=== PATIENT | male | born 1985 | race Caucasian/White ===

== ENCOUNTER 2017-09-02 12:55 | Inpatient (IN) | payer MEDICAID ==
[~2017-09-02] VITALS: Ht 198.1 cm; Wt 138.1 kg
[2017-09-02 13:10] VITALS: BP 175/101
[2017-09-02] MEDS ORDERED: CHANTIX1 EACH PO (13:16)
[2017-09-02] MEDS ORDERED: LISINOPRIL10 MG PO (13:16)
[2017-09-02] MEDS ORDERED: CLEOCIN HCL150 MG PO (13:17)
[2017-09-02] MEDS ORDERED: XANAX 0.5 MG0.5 MG PO (13:17)
[2017-09-02] MEDS ORDERED: NEURONTIN 300300 M1 PO (13:17)
[2017-09-02] MEDS ORDERED: CYMBALTA20 MG PO (13:17)
[2017-09-02] MEDS ORDERED: HUMALOG100 UNIT/2 SQ (13:18)
[2017-09-02] MEDS ORDERED: TYLENOL EXTRA500 MG PO (13:18)
[2017-09-02] MEDS ORDERED: IBUPROFEN 800800 M1 PO (13:18)
[2017-09-02 13:56] LABS: ABSOLUTE EOSINOPHILS 0.1 thou/uL (0.0-0.7); ABSOLUTE LYMPHOCYTES 1.2 thou/uL (0.8-5.3); ABSOLUTE MONOCYTES 0.4 thou/uL (0.0-1.2); ABSOLUTE NEUTROPHILS 4.8 thou/uL (1.6-8.1); BASOPHILS 0.4 %; EOSINOPHILS 2.2 %; HEMATOCRIT 35.1 % (42.0-52.0); HEMOGLOBIN 11.9 gm/dL (14.0-18.0); LYMPHOCYTES 18.3 %; MCH 30.8 pg (26.0-34.0); MCHC 33.9 g/dL (28.0-37.0); MCV 90.9 fL (80.0-100.0); MONOCYTES 6.7 %; NUCLEATED RBCS 0 /100WBC; PLATELET COUNT* 401 thou/uL (150-400); POLYS 72.4 %; RBC 3.86 mil/uL (4.50-6.00); RDW-CV 12.5 % (10.5-14.5); WBC 6.7 thou/uL (4.0-11.0)
[2017-09-02 14:05] LABS: CALCIUM 8.5 mg/dL (8.5-10.1); CREATININE 1.6 mg/dL (0.6-1.3); POTASSIUM 5.9 mmol/L (3.5-5.1)
[2017-09-02 14:09] LABS: ALBUMIN 2.8 g/dL (3.4-5.0); TOTAL BILIRUBIN 0.4 mg/dL (<0.1-1.0); TOTAL PROTEIN 6.7 g/dL (6.4-8.2)
[2017-09-02] MEDS ORDERED: NORCO 5-325 TA1 EACH PO (14:11)
[2017-09-02 15:43] VITALS: BP 148/68
[2017-09-02 15:47] VITALS: BP 176/104
[2017-09-02 20:00] VITALS: BP 150/90
[2017-09-03] VITALS: BP 134/69
[2017-09-03 04:00] VITALS: BP 173/98
[2017-09-03 08:00] VITALS: BP 161/99
--- NOTE | 2017-09-03 10:12 | EKG ---
[place] [address] ELECTROCARDIOGRAM REPORT Name: DEYA MIRELES Room: [address] ADM IN .R.#: [id number] Admission: 09/02/17 Attend Phys: Shan Murphy Discharge: Date of : 89 Report #: [id number] THIS REPORT FOR: //name// [facility] ED Test Date: 2017-09-02 Test Time: 15:37:49 Pat Name: DEYA MIRELES Department: Room: [place] [address] Gender: M Fiberglass Technician: : 1985 Requested By: Sue Matthews Order Number: [id number] MD: Klever Yan Measurements Intervals Gladys Rate: 84 P: 54 GA: 136 QRS: 17 QRSD: 80 T: 60 QT: 324 QTc: 383 Interpretive Statements Sinus rhythm No previous ECG available for comparison Electronically Signed On 09-03-2017 10:12:32 CDT by Klever Yan [email or web address] <ELECTRONICALLY SIGNED> By: Klever Yan MD, [facility] 09/03/17 1012 D: [id number] Klever Yan MD, FACC /EPI
[2017-09-03 12:00] VITALS: BP 172/103
[2017-09-03 16:00] VITALS: BP 173/110
[2017-09-03 20:00] VITALS: BP 169/91
[2017-09-04] VITALS (7 sets, daily range): BP systolic 125–188; BP diastolic 63–132
--- NOTE | 2017-09-04 08:08 | CON ---
[address] [address] CONSULTATION Name: DEYA MIRELES Room: [address] IN M.R.#: [id number] Admission: 09/02/17 Attend Phys: Shan Murphy Discharge: Date of : [birth year] Report #: [id number] THIS REPORT FOR: //name// CC: Adi Vargas DATE OF SERVICE: 09/03/2017 INFECTIOUS DISEASE CONSULTATION ATTENDING PHYSICIAN: Indy Vargas MD REASON FOR EVALUATION: Right foot chronic plantar ulcer in the setting of type 1 diabetes mellitus, now with increasing pain associated with the medial aspect involving the dorsal and chills. HISTORY OF PRESENT ILLNESS: Chart reviewed, the patient examined. This is a 32-year-old gentleman with type 1 diabetes mellitus diagnosed at age 17. He is on an insulin pump. Blood sugars have been fairly well controlled. He has a chronic plantar ulcer involving his right foot. 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 He noted increasing pain and discomfort. He was evaluated including MRI about 4 weeks ago, apparently was unremarkable. In fact he has had multiple surgeries. He has got hardware involved. He was treated with 10 days of clindamycin, seemed to improve after that; however, had more or less a relapse. He denies significant pulmonary or gastrointestinal related complaints. Plain film showed no osseous abnormality here. Lactic acid of 1.0. Blood cultures are sterile thus far, was empirically placed on antibiotics with cefepime and vancomycin. ALLERGIES: PENICILLIN WHICH CAUSES ANAPHYLAXIS. CURRENT MEDICINES: Include vancomycin, gabapentin, insulin lispro, duloxetine, cefepime, p.r.n. analgesics, antiemetics. PAST MEDICAL HISTORY: Diabetes mellitus type 1, previous toe amputations, hypertension. SOCIAL HISTORY: Disabled, chews tobacco, occasional ethanol. FAMILY HISTORY: Noncontributory. REVIEW OF SYSTEMS: As above. PHYSICAL EXAMINATION: GENERAL: He is pleasant, alert, cooperative, appears mildly chronically ill. He appears to be generally [place] [address] CONSULTATION Name: DEYA MIRELES Room: [address]#: [id number] Admission: 09/02/17 Attend Phys: Shan Murphy Discharge: Date of : 89 Report #: [id number] VITAL SIGNS: Temperature 98.2, pulse 87, respirations 16, blood pressure 161/99. SKIN: Warm, dry, no rashes. HEENT: Unremarkable. NECK: Supple. LUNGS: Clear to auscultation. HEART: Regular. ABDOMEN: Soft, obese, nontender, mildly distended. EXTREMITIES: In the right lower extremity plantar aspect, there is a fissure type lesion in the setting of a callus, is not a significant amount of surface inflammation. He does have some tenderness dorsally. GENITOURINARY: Deferred. RECTAL: Deferred. LABORATORY DATA: Blood cultures described above. Electrolytes: Sodium 138, potassium 5.9, chloride 108, bicarbonate 27, BUN and creatinine 20 and 1.6, glucose of 101. Albumin of 2.8. Total protein of 6.7. CBC: White count of 6.7, H and H 11.9 and 35.1, platelets of 401. ASSESSMENT AND PLAN: Suspected deep infection involving the right foot in the setting of diabetes mellitus type 1. There is associated fixation of hardware with plates, screws involving the 1st, 2nd and 3rd tarsometatarsal joints. We will continue empiric antimicrobial therapy. Await Podiatry evaluation, Dr. Lu. He apparently had been following this. Also, he had MRI over at [facility] roughly a month ago. We will try to obtain those records. We will monitor expectantly. <ELECTRONICALLY SIGNED> By: Sony Khoury MD 09/04/17 0808 1205 [id number] Khoury MD /nt
[2017-09-04 11:17] LABS: ABSOLUTE EOSINOPHILS 0.2 thou/uL (0.0-0.7); ABSOLUTE LYMPHOCYTES 1.2 thou/uL (0.8-5.3); ABSOLUTE MONOCYTES 0.5 thou/uL (0.0-1.2); ABSOLUTE NEUTROPHILS 4.2 thou/uL (1.6-8.1); BASOPHILS 0.8 %; EOSINOPHILS 3.7 %; HEMATOCRIT 31.5 % (42.0-52.0); HEMOGLOBIN 10.9 gm/dL (14.0-18.0); LYMPHOCYTES 19.2 %; MCH 31.3 pg (26.0-34.0); MCHC 34.5 g/dL (28.0-37.0); MCV 90.7 fL (80.0-100.0); MONOCYTES 8.8 %; MPV 7.6 fl. (7.2-11.1); NUCLEATED RBCS 0 /100WBC; PLATELET COUNT* 310 thou/uL (150-400); POLYS 67.5 %; RBC 3.48 mil/uL (4.50-6.00); RDW-CV 12.5 % (10.5-14.5); WBC 6.2 thou/uL (4.0-11.0)
[2017-09-04 11:29] LABS: ALBUMIN 2.5 g/dL (3.4-5.0); CALCIUM 8.3 mg/dL (8.5-10.1); CREATININE 1.3 mg/dL (0.6-1.3); POTASSIUM 5.1 mmol/L (3.5-5.1); TOTAL BILIRUBIN 0.4 mg/dL (<0.1-1.0)
--- NOTE | 2017-09-04 17:24 | CON ---
[address] [address] CONSULTATION Name: DEYA MIRELES Room: [address] IN M.R.#: [id number] Admission: 09/02/17 Attend Phys: Shan Murphy Discharge: Date of : 89 Report #: [id number] THIS REPORT FOR: //name// CC: Adi Vargas DATE OF SERVICE: 09/03/2017 HISTORY OF PRESENT ILLNESS: This is a 32-year-old male who is well known to me. The patient presented to the ED on 09/02/2017, concerned about increased pain, swelling and redness in his right foot. He indicates it has been getting worse over the past several days. The patient has had problems with an ulceration on the plantar aspect of the right foot for the last several weeks. About 2 months ago, he presented to [facility] ED with similar complaints. At that time, an MRI was negative for osteomyelitis or any abscess. He was treated outpatient. As indicated, his pain increased over the past couple of days. PAST MEDICAL HISTORY: Significant for diabetes mellitus, which has not been under good control. The patient has previously had the first and second toe on the left foot amputated about 1 year ago. No problems healing from this. The patient had a right foot reconstruction at several years ago. There is hardware in his right foot. ALLERGIES: THE PATIENT HAS AN ALLERGY TO PENICILLIN. CURRENT MEDICATIONS: Include hydralazine, vancomycin, gabapentin, insulin, Cymbalta, Percocet. Examination of the plantar aspect of the patient's right foot shows a full thickness ulceration beneath the first metatarsal head on the right foot. The ulceration is approximately 1.0 x 0.5 cm. There is hyperkeratotic tissue surrounding the ulceration. There is a moderate amount of drainage present. The ulceration does not probe deep. No exposed tendon or bone. No cellulitis associated with the ulceration. The patient does have an area of cellulitis along the medial aspect of the first metatarsal head, more proximal than the ulceration. This area is painful to the patient upon compression. No abscesses are noted. The patient has well-healed surgical scars on the right foot from the [place] [address] CONSULTATION Name: DEYA MIRELES Room: [address] IN ..#: [id number] Admission: 09/02/17 Attend Phys: Shan Murphy Discharge: Date of : 89 Report #: [id number] The DP and PT pulses are palpable on the right foot. The patient is unable to feel a 10 gram monofilament consistent with peripheral neuropathy. The patient's x-rays were reviewed. These do not show any obvious destruction consistent with osteomyelitis. There is hardware in the mid foot and rearfoot from the previous reconstruction. ASSESSMENT: 1. Cellulitis, right foot. 2. Diabetic ulceration, right forefoot with fat layer exposure. PLAN: The patient's symptoms do not appear to be associated with the ulceration. We will see about getting an MRI on the right foot. This may show a significant amount of artifact due to the hardware that is present. On this visit, the ulceration was debrided at the bedside. Continued local wound care with Aquacel Ag and foam pad. The importance of offloading was discussed. Also of note is the patient's BUN and creatinine are slightly increased. Therefore, it will be difficult to utilize contrast for the MRI. Thank you for asking me to participate in the care of this patient. <ELECTRONICALLY SIGNED> By: Gaudencio Lu DPM 09/04/17 1724 1735 1800Gaudencio Lu DPM /nt
[2017-09-05 03:38] VITALS: BP 133/79
[2017-09-05 07:49] VITALS: BP 145/100
[2017-09-05 12:00] VITALS: BP 146/87
[2017-09-05 12:59] VITALS: BP 146/87
[2017-09-05] MEDS ORDERED: MINOCIN100 MG PO (14:01)
[2017-09-05] MEDS ORDERED: PERCOCET PO (14:15)
--- NOTE | 2017-11-01 11:54 | CON ---
[address] [address] CONSULTATION Name: DEYA MIRELES Room: [address] IN M.R.#: [id number] Admission: 09/02/17 Attend Phys: Shan Murphy Discharge: 09/05/17 Date of : 89 Report #: [id number] THIS REPORT FOR: //name// CC: Adi Vargas DICTATED BY: Jose Manriquez DO DATE OF SERVICE: 09/04/2017 HISTORY OF PRESENT ILLNESS: The patient is a 32-year-old male with history of uncontrolled type 1 diabetes. He had a Lisfranc injury in the past that was left untreated for several years. He ultimately had this addressed at with Dr. Singh. He has since over the last 6 weeks developed IPK over his first metatarsal head. It is only through the superficial skin. There is still subcutaneous tissue overlying the metatarsal head. There is no area where it tracks the bone. There is no drainage. He has been wearing appropriate shoe inserts, however, is not overly compliant with wearing them. He has not been back to see Dr. Singh recently. No other acute complaints. PAST MEDICAL HISTORY: Type 1 diabetes mellitus, history of renal failure, symptomatic hardware, right foot. MEDICATIONS: See JUN. ALLERGIES: PENICILLIN. PAST SURGICAL HISTORY: Reconstruction of right foot with pins and screws. Lens replacement, right eye. Unspecified left shoulder surgery. Great and second toe, left foot amputated. REVIEW OF SYSTEMS: A 12-point review of systems otherwise negative except for the above-mentioned in HPI PHYSICAL EXAMINATION: GENERAL: Alert and oriented, no acute distress. HEENT: Head normocephalic, atraumatic. Eyes: Extraocular motion intact. Ears are grossly normal. Mouth mucosa moist. NECK: Supple. CARDIOVASCULAR: Cap refill brisk. ABDOMEN: Soft. MUSCULOSKELETAL: Examination of the right foot demonstrates multiple scars from previous fusion across the Lisfranc joint as well as calcaneal osteotomy and Achilles tendon lengthening. He has a 1 cm ulcer over his first metatarsal head on the plantar aspect of his foot with a beefy red base. There is no exposed bone or drainage. Sensation is decreased [place] [address] CONSULTATION Name: DEYA MIRELES Room: [address] IN [facility].#: [id number] Admission: 09/02/17 Attend Phys: Shan Murphy Discharge: 09/05/17 Date of : 89 Report #: [id number] IMAGING: X-rays and MRI reviewed, demonstrate previous hardware with some superficial subcutaneous edema. There is no focal abscess or concern for osteomyelitis. IMPRESSION: 1. Right foot pain. 2. History of a Lisfranc joint fusion. 3. Uncontrolled diabetes. 4. Plantar foot ulcer. PLAN: At this time, we recommend continued medical management with optimization of his blood glucose levels. In regards to the ulcer, it appears sterile. There is no purulent drainage or signs of active infection. MRI is reassuring that there is no infectious process going on in the bone. I discussed with the patient that the hardware may very well be a source of his pain and may also be contributing to some overall malalignment of the first metatarsal which is causing him to develop this ulcer; however, he needs to follow up with Dr. Singh at who can make further recommendations and recommend any continued conservative or surgical options. There is no acute orthopedic intervention required at this time. <ELECTRONICALLY SIGNED> By: Stiven Bailon DO 11/01/17 1154 1634 [id number] Bailon DO /nt
== END 2017-09-05 14:35 | disposition home or self-care (01) | DRG 603 ==
LOC: M.ERS 12:55 → M.TBA-ER 15:05 → M.2W 15:05
PROVIDERS: Physician Assistant; ADMIT Internal Medicine
DX: L03.115 Cellulitis of right lower limb (principal); N17.9 Acute kidney failure, unspecified; E10.621 Type 1 diabetes mellitus with foot ulcer; E87.5 Hyperkalemia; F32.9 Major depressive disorder, single episode, unspecified; I10 Essential (primary) hypertension; Z89.412 Acquired absence of left great toe; Z79.4 Long term (current) use of insulin; Z79.899 Other long term (current) drug therapy; Z88.0 Allergy status to penicillin

== ENCOUNTER → 2018-12-18 | Outpatient (CLI) | payer MEDICAID ==
[~2018-12-18] MED LIST: CHANTIX1 EACH PO; CLEOCIN HCL150 MG PO; CYMBALTA20 MG PO; HUMALOG100 UNIT/2 SQ; IBUPROFEN 800800 M1 PO; LISINOPRIL10 MG PO; MINOCIN100 MG PO; NEURONTIN 300300 M1 PO; NORCO 5-325 TA1 EACH PO; PERCOCET PO; TYLENOL EXTRA500 MG PO; XANAX 0.5 MG0.5 MG PO
== END ==
LOC: M.ULTRA 14:37
DX: N43.3 Hydrocele, unspecified (principal); N17.9 Acute kidney failure, unspecified

== ENCOUNTER 2019-10-06 20:20 | Emergency (ER) | payer MEDICAID ==
[~2019-10-06] VITALS: Ht 198.1 cm; Wt 117.9 kg
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
[2019-10-06] MEDS ORDERED: PROZAC10 M1 PO (20:34)
[2019-10-06 22:33] VITALS: BP 165/93
== END 2019-10-06 22:34 | disposition home or self-care (01) ==
LOC: M.ERS 20:20
DX: H92.01 Otalgia, right ear (principal); I10 Essential (primary) hypertension; E11.9 Type 2 diabetes mellitus without complications; Z79.4 Long term (current) use of insulin; Z88.0 Allergy status to penicillin

== ENCOUNTER 2019-12-03 07:58 | Inpatient (IN) | payer MEDICAID ==
[2019-12-03] VITALS (12 sets, daily range): BP systolic 112–169; BP diastolic 46–96
[~2019-12-03] VITALS: Ht 198.1 cm; Wt 110.8 kg
--- NOTE | ~2019-12-03 | EMS ---
[address] [place] [address] EMS Patient Care Report Name: DEYA MIRELES Room: [address] ADM IN .R.#: [id number] Admission: 12/03/19 Attend Phys: Alex Gibson MD Discharge: Date of : 89 Report #: [id number] THIS REPORT FOR: //name// Report Transmitted: 12/05/2019 12:33 EMS Care Summary [facility] Incident [id number] @ 12/03/2019 07:19 Incident Location [address] [place] [address] Patient DEYA MIRELES Male, 34 Years 1985 Patient Address [address] [place] [address] Patient History Diabetes,Hypertension (HTN),Depression, Patient Allergies Penicillin allergy, Patient Medications Carvedilol, Lisinopril, Humalog, Amlodipine, Chief Complaint Hypoglycemia Disposition Transported Lights/[place] Dispatch Reason Diabetic Problem Transported To [facility] Narrative Med 1 and Engine 2 were dispatched for a [age] year-old male c/o low blood sugar/seizures. Med 1 and Engine 2 arrived on scene and [place] [employer] was on scene also. Patient was lying in a recliner in the living room, seizing in a decorticate position. Patient's had given the patient 2 mg of Glucagon [address] [place] [address] EMS Patient Care Report Name: DEYA MIRELES Room: [address] IN ..#: [id number] Admission: 12/03/19 Attend Phys: Alex Gibson MD Discharge: Date of : [birth year] Report #: [id number] prior to EMS arrival. Patient's glucose was obtained with a result of 81 mg/dL. Patient's oxygen saturation on room air was 81%, patient was placed on NRB at 15 lpm of Oxygen. Patient's seizure ended but patient was still being uncontrollable. Patient was given 1 mg of Midazolam IM. Patient was carried and placed on the stretcher and secured via seat-belts. Patient was moved to the ambulance without incident. Med 1 went en route to [facility]. In the ambulance, patient was still kicking and swinging his arms. FF/Environmental Sustainability Manager [place] was able to obtain IV access in the patient's right forearm with a 20 GA IV and saline lock as Chief Shook held the patient's arms so IV access could be made. Patient was given the other 1 mg of Midazolam with no effect. Patient was given another 2 mg of Midazolam he calmed down for a few short minutes. Then patient attempted getting out of the stretcher seat-belts and swinging and EMS crew. Patient's hands were secured to the stretcher with kerlix. Hospital report was given via radio with no questions or orders received or requested. Med 1 arrived at the hospital. Patient was moved into the ER room 2 still kicking. Two security guards and 3 nurses, EMS crew assisted moving the patient to the ER bed. The ER physician ordered Ativan it had no effect on the patient. Patient was given Haldol in the ER, it helped briefly. Patient care was transferred to ER staff and Med 1 crew returned back into service. [id number] KShook Initial Vitals @08:09P: 108,R: 22,BP: 112/46,GCS: 7,Glucose: -2,SpO2: 98,Revised Trauma: 10, @07:25R: 24,BP: 102/80,GCS: 7,Glucose: 81,SpO2: 81,Revised Trauma: 10, Assessments @07:22MENTAL:Combative,Confused,Other,SKIN:Pale,Diaphoresis,Cold,HEENT:LUNG SOUNDS:ABDOMEN:PELVIS//GI:EXTREMITIES:PULSE:NEURO: Impression Diabetic Hypoglycemia Procedures @07:24Oxygen FlowRate: 15 Device: Non Re-breather Mask (NRB) Response: UnchangedSucceeded@07:45Midazolam - 2 Milligrams (mg) - Intravenous (IV)Response: Unchanged@07:34Midazolam - 1 Milligrams (mg) - Intramuscular (IM)Response: Unchanged@07:38Midazolam - 1 Milligrams (mg) - Intravenous (IV)Response: Unchanged@07:38Saline Lock 10cc (20 ga) Site: Forearm-RightResponse: [place] [address] EMS Patient Care Report Name: DEYA MIRELES Room: [address] IN .#: [id number] Admission: 12/03/19 Attend Phys: Alex Gibson MD Discharge: Date of : [birth year] Report #: [id number] 07:19,Call Received 07:19,Dispatched 07:19,En Route 07:20,On Scene 07:21,At Patient 07:24,Oxygen FlowRate: 15 Device: Non Re-breather Mask (NRB) Response: UnchangedSucceeded, 07:25,BP: 102/80 M,PULSE: ,RR: 24 R,SPO2: 81 Ox,ETCO2: ,B,PAIN: ,GCS: 7, 07:34,Midazolam - 1 Milligrams (mg) - Intramuscular (IM),Response: Unchanged 07:37,Depart Scene 07:38,Midazolam - 1 Milligrams (mg) - Intravenous (IV),Response: Unchanged 07:38,Saline Lock 10cc 20 ga Site: Forearm-Right,Response: UnchangedSucceeded, 07:45,Midazolam - 2 Milligrams (mg) - Intravenous (IV),Response: Unchanged 07:56,At Destination 08:09,BP: 112/46 M,PULSE: 108,RR: 22 R,SPO2: 98 Ox,ETCO2: ,BG: -2,PAIN: ,GCS: 7, 08:36,Call Closed 08:36,In District Disclaimer v1.1 Copyright 2020 [employer] This EMS Care Summary contains data elements from the applicable legal record (which may be displayed differently). It is designed to provide pertinent information for the following purposes: continuity of care, clinical quality, and state data reporting. The complete legal record is available to ED staff and administrators of the receiving hospital in [employer] Patient Tracker. All data is provided "as is."
[~2019-12-03 07:58] MED LIST changes: +PROZAC10 M1 PO
[2019-12-03 08:28] LABS: HEMATOCRIT 39.6 % (42.0-52.0); HEMOGLOBIN 13.5 gm/dL (14.0-18.0); MCH 31.4 pg (26.0-34.0); MCHC 34.2 g/dL (28.0-37.0); MCV 91.9 fL (80.0-100.0); MPV 7.7 fl. (7.2-11.1); NUCLEATED RBCS 0 /100WBC; PLATELET COUNT* 378 thou/uL (150-400); RBC 4.31 mil/uL (4.50-6.00)
[2019-12-03 08:42] LABS: URINE BILIRUBIN NEGATIVE (Negative); URINE BLOOD NEGATIVE (Negative); URINE CLARITY CLEAR; URINE COLOR YELLOW; URINE GLUCOSE-RANDOM 2+ (Negative); URINE KETONES NEGATIVE (Negative); URINE LEUKOCYTES-REFLEX NEGATIVE (Negative); URINE NITRITE-REFLEX NEGATIVE (Negative); URINE PROTEIN 2+ (Negative); URINE UROBILINOGEN 0.2 E.U./dl (0.2-1.0)
[2019-12-03 08:47] LABS: ALBUMIN 3.9 g/dL (3.4-5.0); ALKALINE PHOSPHATASE 95 U/L (46-116); ANION GAP 8 mmol/L (7-16); BUN 41 mg/dL (7-18); CALCIUM 8.7 mg/dL (8.5-10.1); CHLORIDE 100 mmol/L (98-107); CO2 27 mmol/L (21-32); CREATININE 2.2 mg/dL (0.6-1.3); GLUCOSE 303 mg/dL (70-99); MAGNESIUM 3.1 mg/dL (1.8-2.4); PHOSPHORUS* 3.5 mg/dL (2.5-4.9); POTASSIUM 4.6 mmol/L (3.5-5.1); SGOT 17 U/L (15-37); SGPT 30 U/L (30-65); SODIUM 135 mmol/L (136-145); TOTAL BILIRUBIN 0.6 mg/dL (<0.1-1.0); TOTAL PROTEIN 8.1 g/dL (6.4-8.2)
[2019-12-03 08:51] LABS: AMORPHOUS URATES Many /LPF (None Seen); BACTERIA-REFLEX 1-9 Few /HPF (None Seen); CASTS None Seen /LPF (None Seen); CRYSTALS None Seen /LPF (None Seen); MUCUS 0-3 Light strn/LPF (None Seen); SQUAMOUS 0-3 Few /LPF (0-3); URINE RBC 0-2 Rare /HPF (0-2); URINE WBC-REFLEX 0-5 Rare /HPF (0-5)
[2019-12-03] MEDS ORDERED: LYRICA25 MG PO (08:59)
[2019-12-03] MEDS ORDERED: AMITRIPTYLINE H25 M3 PO (09:00)
[2019-12-03] MEDS ORDERED: PROZAC20 M1 PO (09:00)
[2019-12-03] MEDS ORDERED: NORVASC 2.5 MG2.5 M1 PO (09:00)
[2019-12-03] MEDS ORDERED: COREG25 M1 PO (09:00)
[2019-12-03 09:34] LABS: ABSOLUTE EOSINOPHILS 0.1 thou/uL (0.0-0.7); ABSOLUTE LYMPHOCYTES 0.6 thou/uL (0.8-5.3); ABSOLUTE MONOCYTES 0.4 thou/uL (0.0-1.2); ABSOLUTE NEUTROPHILS 10.9 thou/uL (1.6-8.1); PLATELET ESTIMATE ADEQUATE
[2019-12-03 09:44] LABS: PCO2 40.8 mmHg (35.0-45.0); pH 7.324 (7.340-7.450)
--- NOTE | 2019-12-03 09:48 | NUR ---
PT'S REPORTS THAT WHEN SHE CHECKED PT'S BLOOD GLUCOSE AT HOME THIS MORNING WHEN SHE FOUND HIM SEIZING, HIS BLOOD GLUCOSE WAS 28, SHE THEN GAVE HIM GLUCAGON 2 MG BEFORE EMS ARRIVAL.
[2019-12-03 10:13] LABS: AMP/METHAMP Negative (Negative); BARBITURATES Negative (Negative); BENZODIAZEPINES POSITIVE (Negative); COCAINE Negative (Negative); METHADONE Negative (Negative); OPIATES Negative (Negative); PCP Negative (Negative); THC POSITIVE (Negative)
--- NOTE | 2019-12-03 13:27 | NUR ---
DR. LAW CONSULTING WITH PT'S SPOUSE AND PT AT THIS TIME.
--- NOTE | 2019-12-03 18:47 | NUR ---
PT RECEIVED FROM ER AT 1430, SEDATED AND UNRESPONSIVE, GRIMACES TO PAIN ONLY. ADMISSION HISTORY VIA . NS AT 100 MLS/HR. SEIZURE PRECAUTIONS APPLIED. MRI PLANNED FOR TOMORROW.
[2019-12-04] VITALS (23 sets, daily range): BP systolic 119–164; BP diastolic 59–90
[2019-12-04 02:06] LABS: GLYCOHEMOGLOBIN (HGB A1C) 7.5 % (4.8-5.6)
[2019-12-04 04:16] LABS: ABSOLUTE MONOCYTES 0.7 thou/uL (0.0-1.2); ABSOLUTE NEUTROPHILS 7.9 thou/uL (1.6-8.1); BASOPHILS 0.4 %; EOSINOPHILS 0.1 %; HEMATOCRIT 34.4 % (42.0-52.0); HEMOGLOBIN 11.6 gm/dL (14.0-18.0); LYMPHOCYTES 10.8 %; MCH 31.7 pg (26.0-34.0); MCHC 33.7 g/dL (28.0-37.0); MONOCYTES 7.4 %; MPV 8.2 fl. (7.2-11.1); NUCLEATED RBCS 0 /100WBC; POLYS 81.3 %; RBC 3.66 mil/uL (4.50-6.00); RDW-CV 13.2 % (10.5-14.5); WBC 9.7 thou/uL (4.0-11.0)
[2019-12-04 04:20] LABS: PLATELET COUNT* 294 thou/uL (150-400)
[2019-12-04 04:24] LABS: CALCIUM 7.8 mg/dL (8.5-10.1); CREATININE 2.6 mg/dL (0.6-1.3)
[2019-12-04 04:25] LABS: POTASSIUM 6.1 mmol/L (3.5-5.1)
--- NOTE | 2019-12-04 05:21 | NUR ---
PT. HAS BEEN IMPULSIVE THROUGHOUT SHIFT, BILAT SOFT WRIST AND LEFT LEG RESTRAINTS APPLIED AT MIDNIGHT. PT. WAS ABLE TO CLIMB OUT OF BED AND URINATED LARGE AMOUNT ALL OVER FLOOR. PT. THEN SPIT ON FLOOR AND SPIT TOWARDS NURSING STAFF. NURSING STAFF WAS ABLE TO GET PT. BACK INTO BED SAFELY. PT. IS NOT COMMUNICATING VERBALLY AT ALL TO NURSES. HAS NOT SAID A SINGLE WORD THIS SHIFT, JUST LOOKS AT NURSES BUT DOES NOT TALK. MULTIPLE ATTEMPTS TO GET PT. TO COMMUNICATE WANTS/NEEDS/CONCERNS. POTASSIUM 6.1, DR. SHAFFER NOTIFIED, STATED "NOTHING CAN BE DONE NOW I WILL SEE HIM THIS MORNING". DR. SHAFFER NOTIFIED OF ELEVATED BLOOD GLUCOSE, NO NEW ORDERS. BED ALARM ARMED, WILL CONTINUE TO MONITOR.
--- NOTE | 2019-12-04 07:03 | NUR ---
PT. AGGRESSIVELY TRYING TO GET OUT OF BED. STILL WILL NOT COMMUNICATE WITH NURSES. PT. ATTEMPTED TO SLIDE HIMSELF TO BOTTOM OF BED AND URINATE ON FLOOR, PT. THEN HAD LARGE BOWEL MOVEMENT ON FLOOR. STILL IS NOT COMMUNICATING WITH NURSES. SECURITY CALLED, ASSISTED NURSING STAFF GETTING PT. BACK INTO BED. WILL CONTINUE TO MONITOR.
[2019-12-04 09:15] LABS: ALBUMIN 3.2 g/dL (3.4-5.0); CALCIUM 7.9 mg/dL (8.5-10.1); CREATININE 2.8 mg/dL (0.6-1.3); TOTAL BILIRUBIN 0.7 mg/dL (<0.1-1.0); TOTAL PROTEIN 6.9 g/dL (6.4-8.2)
[2019-12-04 09:23] LABS: POTASSIUM 6.3 mmol/L (3.5-5.1)
[2019-12-04 11:46] LABS: BE -7.3 mmol/L (-2 to +3); PCO2 34.4 mmHg (35.0-45.0); PO2 91.7 mmHg (75.0-100.0)
[2019-12-04 13:17] LABS: CALCIUM 8.4 mg/dL (8.5-10.1); CREATININE 2.6 mg/dL (0.6-1.3)
[2019-12-04 13:19] LABS: POTASSIUM 4.9 mmol/L (3.5-5.1)
[2019-12-04 13:20] LABS: ALBUMIN 3.1 g/dL (3.4-5.0); PHOSPHORUS* 2.9 mg/dL (2.5-4.9)
--- NOTE | 2019-12-04 14:10 | NUR ---
ICU rounds:Pt agitated over night, not talking. CM spoke with Pt's in room. Pt is normally A&O. Independent. Per , Pt has been sick, off and on for years. Pt is a type 1 diabetic, and wasn't suppose to live past the age of 6. Pt is a right BKA, and left partial toe removal. Pt has a prothesis. On DKA protocol. does not want any life sustaining measures performed, states that they had started filling out an AD, to try and locate and bring in. CM updated Dr and nurse.
[2019-12-04 18:04] LABS: CALCIUM 8.6 mg/dL (8.5-10.1); CREATININE 2.1 mg/dL (0.6-1.3); POTASSIUM 4.7 mmol/L (3.5-5.1)
[2019-12-04 18:07] LABS: ALBUMIN 3.2 g/dL (3.4-5.0); MAGNESIUM 2.9 mg/dL (1.8-2.4); PHOSPHORUS* 3.1 mg/dL (2.5-4.9)
--- NOTE | 2019-12-04 20:08 | NUR ---
I ASSUMED CARE OF THE PATIENT AT 0700. HE IS DISORIENTED X4 AND IS ON BED REST. PATIENT IS TRYING TO SCALE THE SIDES OF THE BED. BED IS IN THE LOW LOCKED POSITION AND CALL LIGHT IS IN REACH. BED ALARM IS ON. PAIN IS DENIED. HOURLY ROUNDING IS COMPLETED AND PATIENT NEEDS ARE MET. DKA PROTOCOL IS FOLLOWED, BLOOD GLUCOSE IS MONITORED AND INSULIN IS TITRATED APPROPRIATELY. I ESCORTED THE PATIENT TO MRI. IS AT THE BEDSIDE MOST OF THE DAY. NEW ORDERS WERE OBTAINED. PRN MEDS WERE UTILIZED TO KEEP THE PATIENT SAFE. RESTRAINT PROTOCOL WAS ALSO FOLLOWED. LABS ARE FOLLOWED DURING THE DAY AND NEW ORDERS WERE OBTAINED. A NEW IV WAS STARTED IN THE RIGHT A/C. TURNS WERE DONE EVERY 2 HOURS AND PATIENT WAS REPOSITIONED. JARRELL WAS PLACED. MEDICAL RECORDS WERE ALSO PLACED IN THE CHART FROM HIS LAST FEW APPOINTMENTS/SURGERIES. WILL CONTINUE TO MONITOR.
[2019-12-04 21:41] LABS: CALCIUM 8.6 mg/dL (8.5-10.1); CREATININE 2.1 mg/dL (0.6-1.3); POTASSIUM 4.6 mmol/L (3.5-5.1)
[2019-12-04 21:44] LABS: ALBUMIN 3.2 g/dL (3.4-5.0); MAGNESIUM 2.6 mg/dL (1.8-2.4); PHOSPHORUS* 2.8 mg/dL (2.5-4.9)
[2019-12-05] VITALS (29 sets, daily range): BP systolic 131–205; BP diastolic 60–130
[2019-12-05 04:05] LABS: ABSOLUTE BASOPHILS 0.1 thou/uL (0.0-0.2); ABSOLUTE LYMPHOCYTES 1.5 thou/uL (0.8-5.3); ABSOLUTE NEUTROPHILS 9.7 thou/uL (1.6-8.1); BASOPHILS 0.8 %; EOSINOPHILS 0.2 %; HEMATOCRIT 33.4 % (42.0-52.0); HEMOGLOBIN 11.5 gm/dL (14.0-18.0); LYMPHOCYTES 12.2 %; MCH 31.8 pg (26.0-34.0); MCHC 34.4 g/dL (28.0-37.0); MCV 92.5 fL (80.0-100.0); MONOCYTES 8.1 %; MPV 7.9 fl. (7.2-11.1); NUCLEATED RBCS 0 /100WBC; PLATELET COUNT* 294 thou/uL (150-400); POLYS 78.7 %; RBC 3.61 mil/uL (4.50-6.00); RDW-CV 13.3 % (10.5-14.5); WBC 12.3 thou/uL (4.0-11.0)
[2019-12-05 04:16] LABS: CALCIUM 8.8 mg/dL (8.5-10.1); POTASSIUM 4.5 mmol/L (3.5-5.1)
--- NOTE | 2019-12-05 04:56 | NUR ---
ASSUMED CARE AT 1910H, ON RA AND TOLERATED. SEEN SLEEPING ON BED AND WHEN ASKED PT JUST LOOKED AT ME. UPDATE GIVEN TO . INSULIN DRIP STOP AND STARTED ON SS. IVF CHANGED TO .45%NS. NO DISTRESS. KEPT SAFE AND STILL ON RESTRAIN. CONTINUE MONITORING AND TOWARD GOALS.
--- NOTE | 2019-12-05 11:16 | NUR ---
ST ATTEMPTED SWALLOW EVAL. PT WOULD NOT FOLLOW COMMANDS OR OPEN MOUTH. REMAINS NPO
[2019-12-05 11:28] LABS: CALCIUM 8.3 mg/dL (8.5-10.1); CREATININE 1.7 mg/dL (0.6-1.3)
--- NOTE | 2019-12-05 13:17 | CON ---
[address] [address] CONSULTATION Name: DEYA MIRELES Room: [address] IN M.R.#: [id number] Admission: 12/03/19 Attend Phys: Alex Gibson MD Discharge: Date of : 89 Report #: [id number] THIS REPORT FOR: //name// cc: Robin Pastor Karl ~ THIS REPORT FOR: //name// CC: Alex Pastor DATE OF SERVICE: 12/04/2019 NEPHROLOGY CONSULTATION CONSULTING PHYSICIAN: Dr. Gibson. REASON FOR NEPHROLOGY CONSULTATION: Acute kidney injury and hyperkalemia. REASON FOR ADMISSION: Altered mental status. HISTORY OF PRESENT ILLNESS: This is a 34-year-old male with past medical history of type 1 diabetes, who uses an insulin pump at home, was brought in after he was having altered mental status at home. The patient's noticed that the patient woke up and he was moaning and at that time he was also having some flailing movements. He had a seizure-like activity reported by the patient's and his sugar was 25. The patient's insulin pump was immediately removed and glucagon therapy was given. On his way to the ER, the patient was still very agitated and he remains agitated till now. His blood glucose has been running high, most recent one was 452. He was also found to have a creatinine of 2.2 when he first came in here, which has increased to 2.6. I am not sure how much urine he is making because he does not have a Mendez catheter. He also has a potassium of 6.1. His U-tox was positive for benzodiazepine, but note he did get Versed on his way to the ER and also positive for marijuana. The patient's states the patient uses marijuana every day, he smokes it. In addition to other medications, he also takes lisinopril at home. I am not sure if he takes any NSAIDs at home. I am not sure if he has any history of kidney stones or history of chronic kidney disease, but we do have a creatinine from 08/2017 when his creatinine was 1.3. REVIEW OF SYSTEMS: Unable to obtain from the patient because of altered mental status. Currently, he is resting. ALLERGIES: PENICILLIN. HOME MEDICATIONS: Include lisinopril 10 mg a day, he does take Xanax p.r.n. for anxiety, Lyrica, Prozac, amlodipine, amitriptyline, insulin lispro, [place] [id number] CONSULTATION Name: DEYA MIRELES Room: [address] IN [facility].#: [id number] Admission: 12/03/19 Attend Phys: Alex Gibosn MD Discharge: Date of : 89 Report #: [id number] acetaminophen, and carvedilol. PAST MEDICAL AND SURGICAL HISTORY: Includes diabetes type 1 with his insulin pump, hypertension, great and second toe amputation of left foot, reconstruction of right foot with pins and screws, lens were placed in the right eye, and left shoulder surgery. FAMILY HISTORY: Reviewed and noncontributory in this situation. SOCIAL HISTORY: We do not know that he uses alcohol, not sure how often. No tobacco smoking, but he does smoke marijuana every day and other recreational drug use is not known. PHYSICAL EXAMINATION: VITAL SIGNS: Blood pressure is 141/64, temperature 37.4, respiratory rate was 18, pulse rate was 91, and pulse ox was 98% on no oxygen. GENERAL: He currently has his eyes closed, resting comfortably. HEAD AND EYES: Atraumatic, normocephalic. Normal conjunctivae. EARS, NOSE, AND THROAT: Normal ears and nose. Mucous membranes are dry. NECK: No JVD. CHEST: Bilaterally clear to auscultation anteriorly. No crackles or wheezing. CARDIOVASCULAR: S1, S2 normal. No murmurs. ABDOMEN: Soft and nondistended. There is some suprapubic distention. EXTREMITIES: Lower extremities, there is no lower extremity edema. NEUROLOGICAL FUNCTION: Cannot be assessed right now, he is in altered mental status. PSYCHIATRIC: Not able to assess right now. SKIN: Warm and dry. LABORATORY DATA: WBC is 9.7, hemoglobin 11.6, and platelet count is 294. Sodium is 137, potassium is 6.1, chloride is 104, CO2 is 18, creatinine is 2.6, BUN is 55, and blood glucose was 452. Other labs were reviewed. IMAGING: Chest x-ray and head CT were reviewed. ASSESSMENT: 1. Acute kidney injury on possibly chronic kidney disease, which is in the setting of hyperglycemia and intravascular volume depletion. The patient did have a seizure, hence CPK is being checked to rule out rhabdomyolysis. He was also on lisinopril at home with intravascular volume depletion that can also cause acute kidney injury. Renal imaging is pending. UA showed 2+ protein. Urine protein to creatinine ratio should be done once his kidney injury gets better. Need to also obtain his baseline creatinine if possible. 2. History of diabetes type 1. The patient uses insulin pump at home. He presented with hypoglycemia. 3. Encephalopathy could be in post-seizure setting. Neurology following for [address] [place] [address] CONSULTATION Name: DEYA MIRELES Room: [address] IN M.R.#: [id number] Admission: 12/03/19 Attend Phys: Alex Gibson MD Discharge: Date of : 89 Report #: [id number] that. 4. History of below-knee amputation for foot amputation. 5. History of marijuana usage on a daily basis. 6. History of anxiety. 7. Anion gap metabolic acidosis in the setting of hyperglycemia and acute kidney injury. 8. Hyperkalemia in the setting of hyperglycemia and acute kidney injury and metabolic acidosis. 9. Hypermagnesemia. PLAN: 1. I have changed IV fluids to bicarbonate drip sterile water with 3 amps of sodium bicarbonate, we will run that at 150 mL an hour. 2. Check a CPK to rule out rhabdomyolysis. Try to keep his MAP around 65-70 and avoid all nephrotoxic agents. 3. Consider starting an insulin drip for better glycemic control, which will help his metabolic acidosis and hyperkalemia as well. 4. Avoid magnesium containing compounds. 5. Try to obtain baseline creatinine if possible. 6. We will check a renal ultrasound. 7. Continue to hold lisinopril. 8. Strict I's and O's on him. Please place a Mendez catheter. Thank you for this consultation. We will continue to follow with you. Discussed with the patient's nurse. I spent 35 minutes in critical care time, we spent in chart review, care coordination and counseling. We will continue to follow with you. <ELECTRONICALLY SIGNED> By: Laurence Augustin MD 12/05/19 1317 [id number] Augustin MD /nt
--- NOTE | 2019-12-05 14:16 | NUR ---
ICU rounds: Pt alert, not talking. DNR. Blood sugars are pretty well controlled. On fluids. Kidney function is improving.
--- NOTE | 2019-12-05 19:22 | NUR ---
PT HAS REMAINED DROWSY THROUGHOUT THE DAY, EASILY AWAKENS TO VERBAL/PHYSICAL STIMULI BUT DRIFTS BACK TO SLEEP SOON AFTER STIMULI CEASES. IVF INFUSING ORDERED. AT BEDSIDE MUCH OF THE DAY. COMPLETE BED BATH GIVEN, HAIR/BEAERD SHAMPOOED. LAUNDRY MARKER SUPERVISOR AND LLE SOFT RESTRAINTS REMOVED AT 1400 TO BATHE, NO PULLING AT LINES AT ATTEMPTS TO EXIT BED X1HR WHILE THIS RN AT BEDSIDE CONTINUOUSLY AND THEREFORE ALL RESTRAINTS WERE LEFT OFF. PT ROLLS [id number] IN BED FREQUENTLY BUT NO INTERFERENCE WITH LINES. RESTRAINTS REMAIN OFF. PICC LINE ORDERED THIS AM, [facility] DID NOT PLACE AT THAT TIME PT HAD GOOD PERIPHERAL ACCESS AND NO CAUSTIC MEDS AND REQUESTED I CALL HIM IF LINE WAS NEEDED. APPROXIMATELY 1630 THIS RN LEARNED THAT INTENT WAS TO INITIATE TPN, ATTEMPTED TO CALL [facility] HOWEVER HE HAD LEFT FOR THE DAY. NEED FOR PICC PLACEMENT RENATA TOMORROW RELAYED TO HORTENCIA EDUCATION ANALYST RN.
--- NOTE | 2019-12-05 23:15 | NUR ---
PATIENT HAD CLIMBED OUT OF BED AND WAS ATTEMPTING TO WALK AROUND THE ROOM. PATIENT DOES NOT HAVE HIS PROSTHESIS WITH HIM SO HE WAS ON HIS KNEES AT THE EDGE OF THE BED. PATIENT DID NOT FOLLOW COMMANDS AND WAS RESISTANT TO RETURNING TO THE BED. NO APPROPRIATE RESPONSES FROM THE PATIENT. SANDRADON ADMINISTERED AND ORDER OBTAINED FOR PATIENT TO HAVE A SITTER. NO HARM TO PATIENT NOTICED. TRAVELERS' AID WORKER PHYSICIAN AWARE OF INCIDENT. RYLIE
[2019-12-06] VITALS (42 sets, daily range): BP systolic 124–192; BP diastolic 51–125
[2019-12-06 03:17] LABS: ABSOLUTE EOSINOPHILS 0.1 thou/uL (0.0-0.7); ABSOLUTE LYMPHOCYTES 1.8 thou/uL (0.8-5.3); ABSOLUTE NEUTROPHILS 7.6 thou/uL (1.6-8.1); BASOPHILS 0.4 %; EOSINOPHILS 0.7 %; HEMATOCRIT 32.9 % (42.0-52.0); HEMOGLOBIN 11.4 gm/dL (14.0-18.0); LYMPHOCYTES 17.4 %; MCHC 34.6 g/dL (28.0-37.0); MCV 92.4 fL (80.0-100.0); MONOCYTES 9.6 %; MPV 7.9 fl. (7.2-11.1); NUCLEATED RBCS 0 /100WBC; PLATELET COUNT* 268 thou/uL (150-400); POLYS 71.9 %; RBC 3.56 mil/uL (4.50-6.00); RDW-CV 13.4 % (10.5-14.5); WBC 10.5 thou/uL (4.0-11.0)
[2019-12-06 03:36] LABS: ALKALINE PHOSPHATASE 75 U/L (46-116); ANION GAP 8 mmol/L (7-16); BUN 24 mg/dL (7-18); CALCIUM 8.5 mg/dL (8.5-10.1); CHLORIDE 114 mmol/L (98-107); CO2 28 mmol/L (21-32); CREATININE 1.5 mg/dL (0.6-1.3); GLUCOSE 115 mg/dL (70-99); PHOSPHORUS* 2.2 mg/dL (2.5-4.9); POTASSIUM 4.5 mmol/L (3.5-5.1); SGOT 14 U/L (15-37); SGPT 21 U/L (30-65); SODIUM 150 mmol/L (136-145); TOTAL BILIRUBIN 0.4 mg/dL (<0.1-1.0); TOTAL PROTEIN 6.9 g/dL (6.4-8.2)
--- NOTE | 2019-12-06 06:52 | NUR ---
ASSESSMENTS CHARTED. PATIENT IMPULSIVE THROUGHOUT THE NIGHT. PATIENT REPEATEDLY WOULD ATTEMPT TO ROLL HIMSELF OUT OF THE BED. PATIENT HAS BEEN VERY UNCOOPERATIVE WITH NURSING STAFF THROUGH THE SHIFT. JARRELL STILL IN PLACE AND DRAINING WELL. PATIENT REQUIRED 1 DOSE OF GEODON FOR AGITATION. PATIENT BEGAN EXHIBITING SEIZURE LIKE ACTIVITY, TREATED WITH 1MG ATIVAN AND SYMPTOMS CEASED. BED ALARM ON, FALL PRECAUTIONS IN PLACE. VSS
[2019-12-06 14:14] LABS: CALCIUM 8.3 mg/dL (8.5-10.1); CREATININE 1.3 mg/dL (0.6-1.3); POTASSIUM 4.4 mmol/L (3.5-5.1)
--- NOTE | 2019-12-06 19:46 | NUR ---
PATIENT'S AT BEDSIDE. SHE HAS OFFERED TO STAY THE NIGHT AND HELP WITH THE PATIENT'S BEHAVIOR TO KEEP HIM SAFE AND REDUCE THE CHANCE OF INJURY. SPOKE WITH COMPUTER PATTERNMAKER MANA BAIN WHO AUTHORIZED THE PATIENT'S TO STAY THE NIGHT.
[2019-12-07] VITALS (34 sets, daily range): BP systolic 86–182; BP diastolic 38–111
[2019-12-07 05:10] LABS: HEMATOCRIT 30.4 % (42.0-52.0); HEMOGLOBIN 10.7 gm/dL (14.0-18.0); MCHC 35.2 g/dL (28.0-37.0); MCV 91.1 fL (80.0-100.0); MPV 7.3 fl. (7.2-11.1); RBC 3.34 mil/uL (4.50-6.00); RDW-CV 12.7 % (10.5-14.5); WBC 9.9 thou/uL (4.0-11.0)
[2019-12-07 05:24] LABS: ALBUMIN 2.7 g/dL (3.4-5.0); CALCIUM 8.1 mg/dL (8.5-10.1); CREATININE 1.3 mg/dL (0.6-1.3); MAGNESIUM 1.7 mg/dL (1.8-2.4); POTASSIUM 4.7 mmol/L (3.5-5.1); TOTAL BILIRUBIN 0.6 mg/dL (<0.1-1.0); TOTAL PROTEIN 6.2 g/dL (6.4-8.2)
--- NOTE | 2019-12-07 06:07 | CON ---
[address] [address] CONSULTATION Name: DEYA MIRELES Room: [address] ADM IN M.R.#: [id number] Admission: 12/03/19 Attend Phys: Alex Gibson MD Discharge: Date of : 89 Report #: [id number] THIS REPORT FOR: //name// cc: Robin Pastor Karl ~ THIS REPORT FOR: //name// CC: Alex Pastor DATE OF SERVICE: 12/03/2019 HISTORY OF PRESENT ILLNESS: This is a 34-year-old male patient who was seen by me in the Emergency Room. The patient was discussed with Dr. Smith, the Emergency Room physician. The patient's is there. She provided history. She indicated that this patient is a diabetic. His blood sugar goes low, but then he starts sweating and does something to get her attention and she is able to take care of that. She said this time, he did not do that and she does not know how long he was hypoglycemic. Finally, he started having seizure and that got her attention. He got significant amount of sedation in the Emergency Room because he became combative. When I saw this patient, he was not combative but he was not arousable. REVIEW OF SYSTEMS: Indicate that he had amputation in the lower extremities. This is related to the diabetes. His diabetes is uncontrolled. Looking at it, also looks like he has renal dysfunction. His GFR is 35, but in 2018 it was 65. How long this kidney dysfunction is going on is not clear. This was a relevant 14-point review of system, which I can get. PAST MEDICAL HISTORY: Positive for diabetes and hypertension. FAMILY HISTORY: Unremarkable. SOCIAL HISTORY: He apparently does not smoke or drink on a regular basis. PHYSICAL EXAMINATION: Indicates that he is sleepy, but he does not wake up. He did not follow any commands. He did not have any speech output, but he moved all four extremities. His temperature is somewhat up at 99.6. His blood pressure is 160/70, pulse is 96, ____. LABORATORY DATA: White count is 12. I got an EEG done stat on this patient. EEG shows encephalopathy, but no active seizure. I had asked them to get an MRI done stat on this patient. I see it was ordered, but it was never done. I will check with them in the morning to see what happened and it may have been because [place] [address] CONSULTATION Name: DEYA MIRELES Room: [address] IN [facility]#: [id number] Admission: 12/03/19 Attend Phys: Alex Gibson MD Discharge: Date of : 89 Report #: [id number] cooperative when I saw him. I discussed with the and main thing is to observe him at this stage. He does have a kidney dysfunction and we may have to stop his kidney clearing medicine. It looks like his Lyrica is already stopped or at least on hold and he is on a very small dose anyway. I will reevaluate him in the morning and see how he is and give some further recommendations. Thank you very much for this referral. <ELECTRONICALLY SIGNED> By: Odell Heck MD 12/07/19 [phone] [id number] Heck MD /nt
--- NOTE | 2019-12-07 07:30 | NUR ---
PATIENT'S AT BEDSIDE ALL NIGHT. PATIENT WENT FOR CT OF HEAD, RESULTS RETURNED NORMAL. PATIENT TO HAVE SECOND EEG DONE IN AM PER DR. WYNN. PATIENT STILL IMPULSIVE AND ATTEMPTS TO GET OUT OF BED. DOES NOT FOLLOW COMMANDS. WILL RESPOND INTERMITTENTLY, SOMETIMES APPROPRIATE RESPONSES. LAB VALUES IMPROVING. NO SIGNIFICANT EVENTS THIS SHIFT. WCTM
--- NOTE | 2019-12-07 17:56 | NUR ---
PT ADVANCED TOWARD GOALS WAS ABLE TO FOLLOW COMMANDS NOT VERABLIZING WILL NOD HIS HEAD TO QUESTIONS SUCH ARE YOU IN PAIN ARE YOU COMFORTABLE EEG COMPLETED TOLERATED WELL SITTER IN ROOM AT BEDSIDE BED BATH GIVEN AND SHAMPOOED HAIR CENTRAL LINE PLACED YESTERDAY FOR TPN ADVANCED TO CLEAR LIQUID DIET TODAY
[2019-12-08] VITALS (30 sets, daily range): BP systolic 111–182; BP diastolic 34–103
[2019-12-08 04:49] LABS: ABSOLUTE EOSINOPHILS 0.4 thou/uL (0.0-0.7); ABSOLUTE LYMPHOCYTES 1.3 thou/uL (0.8-5.3); ABSOLUTE MONOCYTES 0.7 thou/uL (0.0-1.2); ABSOLUTE NEUTROPHILS 6.8 thou/uL (1.6-8.1); BASOPHILS 0.4 %; EOSINOPHILS 4.1 %; HEMATOCRIT 29.1 % (42.0-52.0); HEMOGLOBIN 10.4 gm/dL (14.0-18.0); LYMPHOCYTES 14.5 %; MCHC 35.6 g/dL (28.0-37.0); MCV 89.9 fL (80.0-100.0); MONOCYTES 7.9 %; MPV 7.8 fl. (7.2-11.1); NUCLEATED RBCS 0 /100WBC; PLATELET COUNT* 228 thou/uL (150-400); POLYS 73.1 %; RBC 3.24 mil/uL (4.50-6.00); RDW-CV 12.7 % (10.5-14.5); WBC 9.2 thou/uL (4.0-11.0)
[2019-12-08 05:09] LABS: CALCIUM 8.3 mg/dL (8.5-10.1); CREATININE 1.3 mg/dL (0.6-1.3); POTASSIUM 4.5 mmol/L (3.5-5.1)
--- NOTE | 2019-12-08 05:50 | NUR ---
ASSESSMENTS CHARTED. PATIENT STILL IMPULSIVE BUT RESPONDING BETTER TO LIMIT SETTING BY NURSING STAFF. WILL STILL ATTEMPT TO GET OUT OF BED, BED ALARM ON AND ALL SIDE RAILS UP. PATIENT CONSISTENTLY TANGLES LINES AND REMOVES MONITORING DEVICES. NO ACUTE EVENTS OVERNIGHT. WCTM
[2019-12-08 05:58] LABS: ALBUMIN 2.6 g/dL (3.4-5.0); DIRECT BILIRUBIN 0.1 mg/dL (<0.1-0.3); TOTAL BILIRUBIN 0.4 mg/dL (<0.1-1.0); TOTAL PROTEIN 5.7 g/dL (6.4-8.2)
--- NOTE | 2019-12-08 14:55 | NUR ---
ICU rounds: Pt is tele status, transferring to 229. A&O, still enchephopathic. MRI today. DNR
--- NOTE | 2019-12-08 18:55 | NUR ---
PT ADMITTED FROM ICU TO TELE FLOOR. ON RA. DENIES PAIN. ACCUCHECK. VSS. SR ON DOCK OPERATIONS SUPERVISOR. FATHER IN ROOM. Q2 TURN.
[2019-12-09] VITALS: BP 112/54
[2019-12-09 04:00] VITALS: BP 128/51
--- NOTE | 2019-12-09 04:07 | NUR ---
INITAL ASSESSMENT PT HAD 1:1 SITTER. PT INCONTINENT OF BM. PLACING HANDS IN STOOL AND RUBBED ON HIS LEG. STAFF ATTEMPTING TO CLEAN PT AND CHANGE BED. PT BECAME AGGITATED UNCOOPERATIVE. PT SMILED AND SAID, "I FEEL ENTERTAINED" STAFF TRYED TO ENCOURANGE PT TO COOPERATE AND TURN. PT SAID WHILE SMILING SAID, "I DON'T FUCKING CARE" SECURITY NOTIFIED FOR UNCOOPERATIVE AGGITATED PT. STAFF OFFERING TO ASSIST PT WITH CLEANING OR BED CHANGE WHEN READY. PT PROCEEDED TO PUNCH STAFF IN FACE. SECURITY ARRIVED SHORTLY AFTER. FAMILY NOTIFIED AND CAME INTO SIT WITH PT. NOTIFIED ORDERS FOR GEODONE (GIVEN). HOUSE SUPP AND [facility] NURSE NOTIFIED. TELEMETRY SHOWS SR. ACCUCHECK Q 4 HRS AND TX WITH INSULIN. JARRELL WITH YELLOW. RIF-TL WITH TPN INFUSING. ON RA. SCHEDULED BP MEDICATION. BP 128-111/51-56. WCTM
[2019-12-09 08:00] VITALS: BP 101/49
[2019-12-09 09:12] LABS: ALBUMIN 2.5 g/dL (3.4-5.0); CALCIUM 8.5 mg/dL (8.5-10.1); POTASSIUM 4.5 mmol/L (3.5-5.1); TOTAL BILIRUBIN 0.4 mg/dL (<0.1-1.0); TOTAL PROTEIN 5.7 g/dL (6.4-8.2)
[2019-12-09 09:13] LABS: CREATININE 2.3 mg/dL (0.6-1.3)
[2019-12-09 12:24] VITALS: BP 120/58
--- NOTE | 2019-12-09 13:17 | NUR ---
ASSUMED PT CARE REPORT RECEIVED FROM NURSE.PT IS ALERT AWAKE . UNABLE TO ASSESS ORIENTATION SINCE PT IS NON-VERBAL. LIDOCAINE PATCH APPLIED ON RIGHT FOREARM. PT'SMOTHER AT BEDSIDE AND HELPS OUT IN COMMUNICATION. PT REFUSES HIS PO MEDICATIONS. IV MEDICATIONS GIVEN TO PT. PSYCH CONSULT DONE AT BEDSIDE, PT WAS UNCOOPERATIVE.SEE REPORT IN CHART. TPN WAS STOPPED ORDERED. ACCUCHECK.INSULIN GIVEN. VSS. FALL PRECAUTION IN PLACE. WILL CONTINUE TO MONITOR PT
[2019-12-09 16:22] VITALS: BP 130/66
[2019-12-09 21:40] VITALS: BP 112/52
[2019-12-10] VITALS (7 sets, daily range): BP systolic 108–170; BP diastolic 49–91
--- NOTE | 2019-12-10 06:39 | NUR ---
NO ACUTE CHANGES THROUGHOUT SHIFT. VSS. ALL ROUNDINGS COMPLETED, ALL NEEDS MET, FULL ASSESSMENT COMPLETED CHARTED.
[2019-12-10 06:46] LABS: HEMOGLOBIN 10.7 gm/dL (14.0-18.0); MCH 31.6 pg (26.0-34.0); MCHC 34.6 g/dL (28.0-37.0); MCV 91.3 fL (80.0-100.0); MPV 8.7 fl. (7.2-11.1); RBC 3.4 mil/uL (4.50-6.00); RDW-CV 13.3 % (10.5-14.5); WBC 11.3 thou/uL (4.0-11.0)
[2019-12-10 06:59] LABS: ALBUMIN 2.7 g/dL (3.4-5.0); CALCIUM 8.7 mg/dL (8.5-10.1); CREATININE 2.1 mg/dL (0.6-1.3); MAGNESIUM 2.1 mg/dL (1.8-2.4); POTASSIUM 4.6 mmol/L (3.5-5.1); TOTAL BILIRUBIN 0.4 mg/dL (<0.1-1.0); TOTAL PROTEIN 6.6 g/dL (6.4-8.2)
--- NOTE | 2019-12-10 16:58 | NUR ---
Pt responds to verbal stimuli and opens his eyes. Pt has been nonverbal. Cooperative with staff. has remained at bedside majority of shift.
[2019-12-11 03:45] VITALS: BP 138/67
--- NOTE | 2019-12-11 03:46 | EEG ---
[address] [address] EEG STUDY REPORT Name: DEYA MIRELES Room: [address] IN [facility].#: [id number] Admission: 12/03/19 Attend Phys: Alex Gibson MD Discharge: Date of : 89 Report #: [id number] THIS REPORT FOR: //name// CC: Alex Pastor DATE OF SERVICE: 12/06/2019 This patient is being evaluated for altered mental status. EEG was done by placing the electrode by standard 10-20 system of electrode placement. Both referential and sequential montages were used for recording. Background activity in this patient's EEG is only about 5 Hz and 30 microvolt. The patient' photic stimulation is unremarkable. No active epileptiform activity was noted. IMPRESSION: This is an abnormal EEG because it is disorganized and poorly formed. That is a nonspecific abnormality, which can occur with encephalopathy. EEG is worse than the one done before, but was done after the patient received some sedation. EEG will be repeated 24 hours after that to see how much it improves. Thank you very much for this referral. <ELECTRONICALLY SIGNED> By: Odell Heck MD 12/11/19 0346 [id number] Heck MD /nt
--- NOTE | 2019-12-11 03:46 | EEG ---
[address] [address] EEG STUDY REPORT Name: DEYA MIRELES Room: [address] IN M.R.#: [id number] Admission: 12/03/19 Attend Phys: Alex Gibson MD Discharge: Date of : 89 Report #: [id number] THIS REPORT FOR: //name// CC: Alex Pastor DATE OF SERVICE: 12/07/2019 This patient is being evaluated for altered mental status. His EEG was repeated because the last one was with sedation. Background activity in this EEG goes up to about 8 Hz and 30 microvolt. In between, still keeps going intermittently slow. Photic stimulation is unremarkable. He appeared to be drowsy and that time, the EEG is slow. IMPRESSION: There is a significant improvement since yesterday and this EEG is indicating that at least part of that fact was because of sedation. EEG still is intermittently slow consistent with encephalopathy. Thank you very much for this referral. <ELECTRONICALLY SIGNED> By: Odell Heck MD 12/11/19 0346 [id number] Heck MD /nt
--- NOTE | 2019-12-11 03:46 | EEG ---
[address] [address] EEG STUDY REPORT Name: DEYA MIRELES Room: [address] IN [facility].#: [id number] Admission: 12/03/19 Attend Phys: Alex Gibson MD Discharge: Date of : 89 Report #: [id number] THIS REPORT FOR: //name// CC: Alex Pastor DATE OF SERVICE: 12/03/2019 This patient is being evaluated for altered mental status. EEG was done by placing the electrode by standard 10-20 system of electrode placement. Both referential and sequential montages were used for recording. Background activity in this patient's EEG is about 5-6 Hz and 30 microvolts. It is a poorly formed background activity. Photic stimulation was unremarkable. EEG was mostly monotonous. Throughout the record, no active epileptiform activity was noticed. IMPRESSION: This is an abnormal EEG, which is very disorganized and poorly formed. That is a nonspecific finding, which can occur with encephalopathy, effect of psychotropic medication, dementia, etc. Clinical correlation is recommended. <ELECTRONICALLY SIGNED> By: Odell Heck MD 12/11/19 0346 [id number] Heck MD /nt
[2019-12-11 06:53] LABS: HEMATOCRIT 31.3 % (42.0-52.0); HEMOGLOBIN 11.1 gm/dL (14.0-18.0); MCH 32.1 pg (26.0-34.0); MCHC 35.4 g/dL (28.0-37.0); MCV 90.7 fL (80.0-100.0); RBC 3.46 mil/uL (4.50-6.00); RDW-CV 12.9 % (10.5-14.5); WBC 9.6 thou/uL (4.0-11.0)
[2019-12-11 07:08] LABS: CALCIUM 8.9 mg/dL (8.5-10.1); CREATININE 1.7 mg/dL (0.6-1.3); MAGNESIUM 1.9 mg/dL (1.8-2.4); POTASSIUM 4.6 mmol/L (3.5-5.1)
--- NOTE | 2019-12-11 07:31 | NUR ---
PT CARE ASSUMED AT 1930. SAT MAINTAINED IN RA. PT IS ALERT, ONLY NODS TO THE QUESTIONS. DENIES PAIN AND SOB. CALL LIGHT WITHIN REACH AND BED IN LOW POSITION. HOURLY ROUNDING DONE FOR PT SAFETY.
[2019-12-11 09:00] VITALS: BP 140/70
[2019-12-11 13:29] VITALS: BP 121/70
--- NOTE | 2019-12-11 16:02 | NUR ---
CM INFORMED BY NURSING THAT THE PT HAS BEEN ACCEPTED TO THE ACUTE INPT REHAB UNIT AND PLAN TO TRANSFER THE PT TO THE UNIT TOMORROW. CM WILL REMAIN AVAILABLE TO ASSIST AND FOLLOW NEEDED.
[2019-12-11 17:31] VITALS: BP 128/80
--- NOTE | 2019-12-11 20:08 | NUR ---
Pt will open his eyes to verbal stimulation but has remained nonverbal this shift. MRI unable to be fully completed related to patient inability to lie on table for entire time. Pt has required sliding scale insulin with his meals. Pt was able to get up to wheelchair and be transported in hallway briefly by his . Pt did require extensive encouragement to transfer back to bed afterward. pt resting quietly at end of shift
[2019-12-12] VITALS: BP 116/67
[2019-12-12 04:11] VITALS: BP 134/83
[2019-12-12 05:52] LABS: HEMOGLOBIN 10.9 gm/dL (14.0-18.0); MCH 31.7 pg (26.0-34.0); MCHC 35.1 g/dL (28.0-37.0); MCV 90.3 fL (80.0-100.0); MPV 8.4 fl. (7.2-11.1); RBC 3.44 mil/uL (4.50-6.00); RDW-CV 12.6 % (10.5-14.5); WBC 8.7 thou/uL (4.0-11.0)
[2019-12-12 06:00] LABS: CALCIUM 8.3 mg/dL (8.5-10.1); CREATININE 1.7 mg/dL (0.6-1.3); POTASSIUM 4.6 mmol/L (3.5-5.1)
--- NOTE | 2019-12-12 06:16 | NUR ---
PT CARE ASSUMED AT 1930. SAT MAINTAINED IN RA. PT IS ALERT, FOLLOWS COMMAND AT TIMES, DOESN'T SPEAK, FOLLOWS COMMANDS. DENIES PAIN AND SOB. CALL LIGHT WITHIN REACH AND BED IN LOW POSITION. HOURLY ROUNDING DONE FOR PT SAFETY.
[2019-12-12 08:00] VITALS: BP 131/78
[2019-12-12 12:25] VITALS: BP 120/77
--- NOTE | 2019-12-12 13:26 | NUR ---
Nutrition: Pt admitted withAMS, hypoglycemia. Telepsych to see for "self-destructive intentions." Type 1 DM, h/o Lt foot amputation, Rt BKA. Labs: BG 200s, alb 2.7, prealb 14.6. CHO controlled diet. Wt: 244#. Assessed d/t LOS. Pt is discharged; going up to Rehab. RD will follow pt on rehab unit. Will offer DM/hypoglycemia education next week when pt settled on rehab. Pt may benefit from nutrition/lifestyle educ on risks and complications of DM, nutrition, wt loss. Consider Mild risk fo rnow. RD to f/u 12/16/19.
[2019-12-12 15:58] VITALS: BP 120/77
[2019-12-12 17:27] VITALS: BP 120/77
== END 2019-12-12 18:55 | DRG 70 ==
LOC: M.ERS 07:58 → M.ICU 10:18 → M.TBA-ER 10:18 → M.ICU 14:45 → M.2W 12-08 15:50 → M.REH 12-12 18:55
PROVIDERS: Internal Medicine; Personal Emergency Response Attendant; ADMIT Internal Medicine; ATTEND Internal Medicine
DX: G93.41 Metabolic encephalopathy (principal); E10.10 Type 1 diabetes mellitus with ketoacidosis without coma; N17.9 Acute kidney failure, unspecified; E87.5 Hyperkalemia; E83.42 Hypomagnesemia; E10.65 Type 1 diabetes mellitus with hyperglycemia; F12.90 Cannabis use, unspecified, uncomplicated; E10.22 Type 1 diabetes mellitus with diabetic chronic kidney disease; Z20.828 Contact with and (suspected) exposure to other viral communicable diseases; I12.9 Hypertensive chronic kidney disease with stage 1 through stage 4 chronic kidney disease, or unspecified chronic kidney disease; N18.3 Chronic kidney disease, stage 3 (moderate); R45.1 Restlessness and agitation; F41.9 Anxiety disorder, unspecified; E10.649 Type 1 diabetes mellitus with hypoglycemia without coma; Z88.0 Allergy status to penicillin; Z89.432 Acquired absence of left foot; Z79.899 Other long term (current) drug therapy

== ENCOUNTER 2019-12-12 15:45 | Inpatient (IN) | payer MEDICAID ==
[~2019-12-12] VITALS: Ht 198.1 cm; Wt 103.4 kg
[~2019-12-12 15:45] MED LIST changes: +AMITRIPTYLINE H25 M3 PO; +COREG25 M1 PO; +LYRICA25 MG PO; +NORVASC 2.5 MG2.5 M1 PO; +PROZAC20 M1 PO
[2019-12-13 05:11] LABS: HEMATOCRIT 31.8 % (42.0-52.0); HEMOGLOBIN 11.3 gm/dL (14.0-18.0); MCH 31.9 pg (26.0-34.0); MCHC 35.5 g/dL (28.0-37.0); MPV 8.9 fl. (7.2-11.1); RBC 3.53 mil/uL (4.50-6.00); RDW-CV 12.5 % (10.5-14.5); WBC 7.6 thou/uL (4.0-11.0)
[2019-12-13 05:30] LABS: CALCIUM 8.6 mg/dL (8.5-10.1); CREATININE 1.5 mg/dL (0.6-1.3); POTASSIUM 4.2 mmol/L (3.5-5.1)
[2019-12-13 08:00] VITALS: BP 151/91
[2019-12-13 09:37] VITALS: BP 151/91
[2019-12-13 20:05] VITALS: BP 149/99
[2019-12-14 09:48] VITALS: BP 134/80
[2019-12-14 19:54] VITALS: BP 143/81
[2019-12-15 07:00] VITALS: BP 149/82
[2019-12-15 09:17] VITALS: BP 149/82
== END 2019-12-15 12:30 | DRG 70 ==
LOC: M.REH 15:45
PROVIDERS: ADMIT Physical Medicine & Rehabilitation; ATTEND Physical Medicine & Rehabilitation
DX: G93.41 Metabolic encephalopathy (principal); E10.10 Type 1 diabetes mellitus with ketoacidosis without coma; N17.9 Acute kidney failure, unspecified; G40.89 Other seizures; N18.3 Chronic kidney disease, stage 3 (moderate); I12.9 Hypertensive chronic kidney disease with stage 1 through stage 4 chronic kidney disease, or unspecified chronic kidney disease; D64.9 Anemia, unspecified; E87.5 Hyperkalemia; Z89.512 Acquired absence of left leg below knee

== ENCOUNTER 2019-12-16 19:13 | Emergency (ER) | payer MEDICAID ==
[~2019-12-16] VITALS: Ht 198.1 cm; Wt 94.3 kg
[2019-12-16 19:51] LABS: URINE BILIRUBIN NEGATIVE (Negative); URINE BLOOD 1+ (Negative); URINE CLARITY CLEAR; URINE COLOR YELLOW; URINE GLUCOSE-RANDOM 3+ (Negative); URINE KETONES 2+ (Negative); URINE LEUKOCYTES-REFLEX NEGATIVE (Negative); URINE NITRITE-REFLEX NEGATIVE (Negative); URINE PROTEIN 2+ (Negative); URINE UROBILINOGEN 0.2 E.U./dl (0.2-1.0)
[2019-12-16 19:58] LABS: HEMATOCRIT 35.6 % (42.0-52.0); HEMOGLOBIN 12.3 gm/dL (14.0-18.0); MCH 31.6 pg (26.0-34.0); MCHC 34.5 g/dL (28.0-37.0); MCV 91.4 fL (80.0-100.0); MPV 8.6 fl. (7.2-11.1); RBC 3.89 mil/uL (4.50-6.00); RDW-CV 12.6 % (10.5-14.5); WBC 11.5 thou/uL (4.0-11.0)
[2019-12-16 20:08] LABS: CALCIUM 8.7 mg/dL (8.5-10.1); CREATININE 1.8 mg/dL (0.6-1.3); POTASSIUM 4.5 mmol/L (3.5-5.1)
[2019-12-16 20:10] LABS: BACTERIA-REFLEX 1-9 Few /HPF (None Seen); CRYSTALS None Seen /LPF (None Seen); HYALINE CASTS 0-3 Few /LPF (None Seen); SQUAMOUS 0-3 Few /LPF (0-3); URINE RBC 0-2 Rare /HPF (0-2); URINE WBC-REFLEX 0-5 Rare /HPF (0-5)
[2019-12-16 20:12] LABS: ALBUMIN 3.2 g/dL (3.4-5.0); TOTAL BILIRUBIN 0.6 mg/dL (<0.1-1.0); TOTAL PROTEIN 7.8 g/dL (6.4-8.2)
[2019-12-16 22:41] VITALS: BP 170/103
== END 2019-12-16 22:41 ==
LOC: M.ERS 19:13
PROVIDERS: Personal Emergency Response Attendant
DX: E11.65 Type 2 diabetes mellitus with hyperglycemia (principal); I13.10 Hypertensive heart and chronic kidney disease without heart failure, with stage 1 through stage 4 chronic kidney disease, or unspecified chronic kidney disease; E11.22 Type 2 diabetes mellitus with diabetic chronic kidney disease; N18.3 Chronic kidney disease, stage 3 (moderate); Z79.4 Long term (current) use of insulin; Z88.0 Allergy status to penicillin